=== PATIENT | female | born 1965 | race Caucasian/White ===

== ENCOUNTER 2024-08-21 10:25 | Outpatient (CLI) | payer OTHER, SELFPAY ==
--- NOTE | 2024-08-22 17:49 | WPDNEUROLOGY ---
Neurology EEG Report General Information Date of Study: 08/21/24 TEST electroencephalogram DIAGNOSIS seizure disorder CONDITION OF RECORDING neurodiagnostic lab EEG NUMBER [id number] CLINICAL HISTORY History of seizures disorder EEG DESCRIPTION During wakefulness the background activity consists of posterior dominant alpha rhythm at 8 hertz with an amplitude of 20-40 microvolts which appears poorly formed. Anteriorly low amplitude mixed frequency activity was seen. There is a good anteroposterior gradient. Hyperventilation and photic stimulation were performed during which no significant abnormal background changes were seen. No episode of driving response was noted. Patient did not progress to stage 2 sleep. IMPRESSION This is a normal EEG obtained during awake state.
== END 2024-08-21 10:26 | disposition home or self-care (01) ==
LOC: ANHNEURO 10:27
PROVIDERS: PCP Internal Medicine; Visit Provider Internal Medicine
DX: G40.909 Epilepsy, unspecified, not intractable, without status epilepticus (principal)
CPT/HCPCS: 95816

== ENCOUNTER 2025-11-18 08:51 | Emergency (ER) | payer OTHER, SELFPAY ==
--- NOTE | ~2025-11-18 | CT_ITS ---
EXAMINATION: 1. CT facial & cervical spine wo DATE: 11/18/2025 09:33 INDICATION: Unwitnessed fall TECHNIQUE: 1. Computed tomography (CT) of the maxillofacial region and of the cervical spine were performed without intravenous contrast. Sagittal and coronal reconstructions of both regions were obtained. Automated exposure control and iterative reconstruction technique were employed. The dose-length product was 454.52 mGy-cm. COMPARISON: None. FINDINGS: Maxillofacial CT: Blowout fracture at the posterior wall of the left orbit with large fragment comprising majority of the area of the inferior wall. The fragment is angulated from its minimally displaced medial margin with up to 1.1 cm caudal displacement of the lateral margin of the fracture. There is herniation of the intraorbital fat and portion of the inferior rectus muscle tear defect into the maxillary sinus. There is also a small amount of dependently layering blood in the right maxillary sinus. Left globe appears intact. Right orbit is normal. There is an additional mildly comminuted and displaced intra-articular fracture of the right femoral condyle. A small portion of the condylar articular surface remains nondisplaced relative to the remainder of the mandible. The larger portion of the mandibular condyle is displaced medially relative to the remainder the mandible and is anterior and medially dislocated from the temporomandibular fossa. No other maxillofacial fractures identified. Nasal septum is midline. Normal alignment with mild osteoarthritis at the left temporomandibular joint. 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 Alignment is normal. No fracture. Vertebral body heights are normal. Moderate disc height loss with associated severe bilateral uncovertebral osteoarthritis and prominent nearly bridging anterior osteophytes at C4-C5 and C5-C6. Posterior disc and osteophyte complexes contribute to mild central canal stenosis at both levels. Remaining disc heights are normal. Disc bulge at C6-C7 also contributes to mild central canal stenosis. There is multilevel mild to moderate cervical and moderate to severe upper thoracic spondylosis. Facet and uncovertebral osteoarthritis contributes to moderate bilateral neural from stenosis at C4-C5 and C5-C6. There is mild neural from stenosis at several additional cervical and upper thoracic neural foramina. Visualized upper lungs are clear. Cervical soft tissues are unremarkable. IMPRESSION: 1. Displaced fracture of the anterior wall of the left orbit with caudal herniation of some of the intraconal fat and a portion of the inferior rectus muscle. 2. Mildly comminuted and displaced intra-articular fracture dislocation of the right mandible condyle. 3. Moderate cervical spondylosis with no acute osseous abnormality. Reviewed, dictated and finalized at location A. IC INFORMATION COORDINATOR IMPRESSION: 1. Displaced fracture of the anterior wall of the left orbit with caudal hernia tion of some of the intraconal fat and a portion of the inferior rectus muscle. 2. Mildly comminuted and displaced intra-articular fracture dislocation of the right mandible condyle. 3. Moderate cervical spondylosis with no acute osseous abnormality.
--- NOTE | ~2025-11-18 | XR_ITS ---
EXAMINATION: XR knee LT 3V, 11/18/2025 13:30 RUG DYER HISTORY: fall with bruising COMPARISON: No comparisons available. Findings: No acute fracture or malalignment. Moderate tricompartmental degenerative changes, small effusion Soft tissues unremarkable. Impression: No acute fracture or malalignment. Reviewed, dictated and finalized at location P. DYER Impression: No acute fracture or malalignment.
--- NOTE | ~2025-11-18 | CT_ITS ---
EXAMINATION: CT brain wo con, 11/18/2025 9:20 OPERATIONAL METEOROLOGIST HISTORY: unwitnessed fall COMPARISON: No comparisons available. Technique: Axial images obtained of the brain without contrast. One or more of the following dose reduction techniques were used: automated exposure control, adjustment of the mA and/or kV according to patient size, use of iterative reconstruction technique. Findings: No acute infarct or parenchymal hemorrhage. No abnormal mass or mass effect. No midline shift. No extra-axial fluid collections. No hydrocephalus. Mastoid air cells unremarkable. Sinuses and orbits unremarkable. No acute fracture. No significant facial or scalp soft tissue swelling evident. No radiopaque foreign body is seen. Impression: 1.No acute intracranial abnormality. Reviewed, dictated and finalized at location P. ATIONAL METEOROLOGIST Impression: 1.No acute intracranial abnormality.
--- NOTE | ~2025-11-18 | XR_ITS ---
EXAMINATION: XR pelvis 1-2V, 11/18/2025 13:30 HEEL NAILING MACHINE OPERATOR HISTORY: fall COMPARISON: No comparisons available. Findings: No acute fracture or malalignment. No significant degenerative changes. Soft tissues unremarkable. Impression: No acute fracture or malalignment. Reviewed, dictated and finalized at location P. NAILING MACHINE OPERATOR Impression: No acute fracture or malalignment.
--- NOTE | ~2025-11-18 | XR_ITS ---
EXAMINATION: XR knee RT 3V DATE: 11/18/2025 14:45 INDICATION: Injury TECHNIQUE: Right knee x-rays were obtained. COMPARISON: None. FINDINGS: No fracture lucency seen. Possible small suprapatellar effusion. Moderately severe tricompartmental osteoarthritic degenerative changes most advanced in the medial compartment and patellofemoral joint. IMPRESSION: 1. No displaced fracture lucency. Possible small suprapatellar joint effusion. Reviewed, dictated and finalized at location A. Y CHILDHOOD ASSOCIATE TEACHER
--- NOTE | ~2025-11-18 | XR_ITS ---
EXAMINATION: XR chest 1V, 11/18/2025 14:30 GEOSPATIAL SPECIALIST HISTORY: fall COMPARISON: No comparisons available. Technique: Single view. Findings: The lungs are clear, no effusion. No pneumothorax. Heart is normal size. Mediastinal and hilar contours are within normal limits. Bony thorax no acute abnormality. Impression: No acute cardiopulmonary abnormality. Reviewed, dictated and finalized at location P. PATIAL SPECIALIST Impression: No acute cardiopulmonary abnormality.
--- NOTE | 2025-11-18 08:59 | ECG_ITS ---
Test Date: 2025-11-18 09:05:30 Measurements Intervals [place] Rate: 108 P: 28 UT: 164 QRS: -35 QRSD: 78 T: 56 QT: 339 QTc: 456 Interpretive Statements SINUS TACHYCARDIA LEFT AXIS DEVIATION VOLTAGE CRITERIA FOR LVH POSSIBLE ANTERIOR MYOCARDIAL INFARCTION , PROBABLY OLD ABNORMAL ECG No previous ECG available for comparison Electronically Signed On 11-18-2025 11:28:39 BATTERY [employer]GER CON[employer]OR LINE by Jean-Pierre Aparicio D.O.
[2025-11-18 09:00] VITALS: BP 94/53; PULSE 111; RESP 18; TEMP 36.6; O2SAT 95
[2025-11-18 09:20] LABS: Hematocrit 33.7 % (37.0-47.0); Hemoglobin 10.6 g/dL (12.0-15.0); Immature Granulocyte Percent A 0.6 % (0-0.5); Lymphocytes Absolute Auto 0.87 K/mm3 (0.9-3.2); Mean Corpuscular HGB Conc 31.5 g/dl (32-36); Mean Corpuscular Hemoglobin 24.1 pg (26-34); Mean Corpuscular Volume 76.8 fl (80-100); Nucleated Red Blood Cells Absolute Auto 0.000 K/mm3 (0.0-0.012); Nucleated Red Blood Cells Perc 0.0 % (0.0-0.2); Platelet Count Result 276 k/mm3 (150-375); Red Blood Count 4.39 M/mm3 (4.2-5.4); White Blood Count 12.8 K/mm3 (4.5-10.0)
[2025-11-18 09:30] VITALS: PULSE 110
[2025-11-18 10:09] VITALS: BP 100/56; PULSE 113; RESP 20; O2SAT 97
--- OUTSIDE RECORDS SUMMARY | 2025-11-18 10:09 | XMS_ITS | Clinical Summary ---
Author Organization [facility] Facility Address [address] [place] [address] Care Team Providers Care Watch Supervisor Name Role Phone Unavailable Primary Care Provider Unavailabl e Allergies Active Allergy Reactions Criticality Noted Date Comments Divalproex Sodium Other (see comments) 06/19/20 21 Lamotrigine Rash,Other (see comments) Low 8 Penicillins Other (see comments) 06/19/2021 Red Dye #40 (Allura Red) Other (see comments) 0 05/06/2018 Medications * This document contains information received from the source organization and may not represent a complete record from that organization. albuterol HFA (PROVENTIL HFA;VENTOLIN HFA) 108 (90 Base) MCG/ACT inhaler 1 puff by Other route every 4 (four) hours Active Aspirin Low Dose 81 MG EC tablet Take 81 mg by mouth 1 (one) time each day 1 Active Cholecalcifero l 50 MCG (2000 UT) capsule Take 1 capsule by mouth 1 (one) time each day Active famotidine (PEPCID) 20 MG tablet Take 20 mg by mouth at night if needed 1 Active gabapentin (NEURONTIN) 800 MG tablet Take 800 mg by mouth 1 (one) time each day 1 Active levETIRAcetam (KEPPRA) 1000 MG tablet Take 1,000 mg by mouth in the morning and 1,000 mg in the evening. 1 Active Melatonin 5 MG capsule Take 1 capsule by mouth 1 (one) time each day Active metFORMIN (GLUCOPHAGE) 500 MG tablet Take 500 mg by mouth 2 (two) times a day with meals 1 Active montelukast (SINGULAIR) 10 MG tablet Take 10 mg by mouth every night 1 Active Multiple Vitamin (Daily-Claudia) tablet Take 1 tablet by mouth daily 1 Active Invega Sustenna 234 MG/1.5ML suspension prefilled syringe every 30 (thirty) days 1 Active simvastatin (ZOCOR) 40 MG tablet Take 40 mg by mouth every night 1 Active traZODone (DESYREL) 150 MG tablet Take 3 tablets by mouth every night Active hydroCHLOROthi azide 25 MG tablet TAKE 1 TABLET BY MOUTH DAILY 90 tablet 1 11/20/20 29 Active sertraline (ZOLOFT) 25 MG tablet Take 25 mg by mouth 1 (one) time each day Active spironolactone (ALDACTONE) 25 MG tablet Take 1 tablet (25 mg total) by mouth 1 (one) time each day 90 tablet 4 Active Empagliflozin 10 MG tablet Take 10 mg by mouth 1 (one) time each day in the morning Active metoprolol succinate XL (TOPROL XL) 25 MG 24 hr tablet Take 25 mg by mouth 1 (one) time each day Do not crush or chew. Active acetaminophen (TYLENOL) 500 MG tablet Take 500 mg by mouth every 6 (six) hours if needed for mild pain Active furosemide (LASIX) 20 MG tablet Take 1 tablet (20 mg total) by mouth in the morning and 1 tablet (20 mg total) in the evening. 180 tablet 5 10/21/20 26 Active furosemide (LASIX) 20 MG tablet TAKE 1 TABLET BY MOUTH EVERY MORNING AND TAKE 1 TABLET BY MOUTH EVERY EVENING 56 tablet 3 5 10/21/20 25 Discontinued Active Problems Problem Noted Date Diagnosed Date Chronic diastolic congestive heart failure 01/22 Stasis dermatitis of lower l imb due to chronic peripheral venous hypertension 06/20/2021 Chronic hyponatremia 06/19/2021 Chronic obstructive pulmonary disease 06/19/2021 Hyperlipidemia 06/19/2021 Morbid obesity 06/19/2021 Schizophrenia 06/19/2021 Seizure disorder 06/19/2021 Urinary incontinence 06/19/2021 Vitamin D deficiency 06/19/2021 Type 2 diabetes mellitus without complication Hyposmolality and/or hyponatremia 06/15/2021 Essential hypertension 06/15/2021 Resolved Problems Problem Noted Date Diagnosed Date Resolved Date Essential hypertension 06/19/202106/20 Diabetes mellitus without me ntion of complication, type II or unspecified type, not stated as uncontrolled 06/15/2021 06/20/2021 Encounters Date Type Department Care Team Description 10/21/2025 Refill [place] [employer] [facility] [place], [facility] [address] [facility] [address] [place] [phone] Blake Fraire MD 09/13/2025 Documentation Only [facility] [employer] [facility] [place], [facility] [address] [facility] [address] [place] [phone] Blake Fraire MD from Last 3 Months Immunizations Immunization Administration Dates Next Due Influenza TIV (IM) 09/01/2017 Pneumococcal Polysaccharide 09/01/2017 Family History Medical History Relation Comments Diabetes Father Heart disease Father Hypertension Father Cancer Mother Heart disease Mother Relation Status Comments Father Alive Mother Social History Tobacco Use Types Packs/Day Years Used Date Smoking Tobacco: Former Smokeless Tobacco: Current Chew Alcohol Use Standard Drinks/Week Comments Never 0 (1 standard drink = 0.6 oz pur e alcohol) Comments Unknown Sex and Gender Information Value Date Recorded Sex Assigned at Not on file Legal Sex Female 2:49 PM EDT Gender Identity Not on file Sexual Orientation Not on file Last Filed Vital Signs Vital Sign Reading Time Taken Comments Blood Pressure 122/70 04/06/2025 10:22 AM CDT Pulse 68 04/06/2025 10:22 AM CDT Temperature 36.1 C (97 F) 04/06/2025 10:22 AM CDT Respiratory Rate 18 04/06/2025 10:22 AM CDT Oxygen Saturation 97% 04/06/2025 10:22 AM CDT Inhaled Oxygen Concentration - - Weight 93.9 kg (207 lb) 04/06/2025 10:22 AM CDT Height 162.6 cm (5' 4) 09/22/2024 12:27 PM CDT Body Mass Index 35.53 09/22/2024 12:27 PM CDT Plan of Treatment Upcoming Encounters Date Type Department Care Team (Late st Contact Info) Description 12/07/2025 10:00 AM HAM TRIMMER Office Visit [facility], [facility] [address] [facility] [address] [place] [phone] Blake Fraire MD [address] [facility] 1 [place] [address] Health Maintenance Due Date Last Done Comments Breast Cancer Screening 1967 Hepatitis B Vaccine (1 of 3 - 19+ 3-dose series) 1986 Colorectal Cancer Screening: Annual FOBT 2016 Colorectal Cancer Screening: Colonoscopy 2016 Colorectal Cancer Screening: Sigmoidoscopy 2016 Pneumococcal Vaccine: 50+ Ye ars (2 of 2 - PCV) 09/01/2018 09/01/2017 Diabetes: Ophthalmology Exam 04/28/2021 Diabetes: Pedal Pulse Checked 04/28/2021 Diabetes: Sensory Foot Exam 04/28/2021 Diabetes: Visual Foot Exam 04/28/2021 Diabetes: Hemoglobin A1C 07/06/2025 025, 08/04/2024, 01/28/2024, Additional history exists Influenza Vaccine (#1) 2025 09/01/2017 Pneumococcal Vaccine: Peds ( 0 to 5 Years) and At-Risk Patients (6 to 49 Years) Discontinued 09/01/2017 Procedures Procedure Name Priority Date/Time Associated Diagnosis Comments EXT RESULT ENTRY Routine 04/05/2025 from Last 3 Months or Most Recently Relevant to Health Maintenance Results * (ABNORMAL) EXT RESULT ENTRY (04/05/2025) WBC 11.0(A) 3.3 - 10.0 10*3/ML Red Blood Cell Count 5.63 Hemoglobin 12.6 12.0 - 16.0 Hematocrit 42.2 36.0 - 46.0 Platelets 376 150 - 399 10*3/UL MCV 75.0(A) 82.0 - 108.0 Sodium 132(A) 137 - 147 Potassium 3.7 3.4 - 5.5 Chloride 94.0(A) 99.0 - 108.0 Carbon Dioxide 31 mmol/L Anion Gap 10.7 <=30 MMOL/L Glucose 192 60 - 200 BUN 15 4 - 21 mg/dL Creatinine 0.79 0.50 - 1.10 mg/dL Total Protein 6.8 6.4 - 8.2 G/DL Albumin 4.1 3.5 - 5.0 g/dL Calcium 10.0 8.7 - 10.7 mg/dL Phosphorus, Serum 4.6(H) eGFR Non-Afr Yemeni >60 PTH 32.4 PG/ML Vitamin D, 25-OH, Total 32.9 ng/mL Hemoglobin A1C 7.4(A) 4.0 - 6.0 Protein Urine Random 19(H) Creatinine, Urine Random 30.60 mg/dL Urine Protein/Creatini ne Ratio 0.6(H) mg/g creat Glucose, UA 1000 mg/dL Bilirubin, UA Negative Ketones, UA Negative Urine Specific [place] 1.006 Blood, UA Negative Alberto/ul pH, UA 7.0 Protein, UA Negative mg/dL Urobilinogen, UA Normal Nitrite, UA Negative Leukocytes, UA 25 WBC, Urine None Seen None Seen, Occasional, 0-2 /HPF RBC, Urine None Seen None Seen, Occasional, 1-5 /HPF Epithelial Cells in Urine Packed Field /HPF Bacteria, Urine None Seen None Seen, Occasional /HPF Triglycerides 214(H) Cholesterol, Total 175 HDL 66 mg/dL LDL-Calculated 66 04/05/2025 [facility] Provider LAB BLOOD ORDERABLES Letty l Result from Last 3 Months or Most Recently Relevant to Health Maintenance Insurance [facility]
--- OUTSIDE RECORDS SUMMARY | 2025-11-18 10:09 | XMS_ITS | Encounter Summary ---
Author Organization [facility] [employer] [facility] [employer] [facility] Address [address] [address] Phone Care Team Providers Care Type Bar And Segment Assembler Name Role Phone Unavailable Primary Care Provider Unavailabl e Reason for Visit * Reason Comments Med Refill Encounter Details Date Type Department Care Team (Late Contact Info) Description 08/01/2023 [facility] [address] [facility] [address] [place] [address] Blake Fraire MD [address] [address] Social History Tobacco Use Types Packs/Day Years Used Date Smoking Tobacco: Former Smokeless Tobacco: Current Chew Alcohol Use Standard Drinks/Week Comments Never 0 (1 standard drink = 0.6 oz pur e alcohol) Comments Unknown Sex and Gender Information Value Date Recorded Sex Assigned at Not on file Legal Sex Female 2:49 PM EDT Gender Identity Not on file Sexual Orientation Not on file documented as of this encounter Plan of Treatment Upcoming Encounters Date Type Department Care Team (Late Contact Info) Description 12/07/2025 10:00 AM COLD ROLLING COORDINATOR [facility] [address] [facility] [address] [place] [address] Blake Fraire MD [address] [facility] 1 [place] [address] documented as of this encounter Visit Diagnoses Not on filedocumented in this encounter
--- OUTSIDE RECORDS SUMMARY | 2025-11-18 10:09 | XMS_ITS | Clinical Summary ---
Author Organization [facility] Address [address] [facility] [place] [address] Care Team Providers Care Piano Sounding Board Matcher Name Role Phone Unavailable Primary Care Provider Unavailabl e Source Comments [facility],non-owned Affiliates and Associated Physician Practices is amultiple site organization consisting of ambulatory clinics and hospital sitesin [place], [place], [place] and [place]. This disclosure is being madepursuant to the Care Everywhere program and may not contain all information available regarding this patient. Last updated 18.[facility] Allergies Active Allergy Reactions Criticality Noted Date Comments Lamotrigine Dizziness,Rash Medium 04/24/2018 Penicillins Dizziness,Rash Medium 04/24/2018 Red Dye Dizziness,Unknown 05/06/2018 Valproic Acid Dizziness,Rash Medium 04/24/2018 Medications * Be aware that medications may not be up to date on this document. Alwaysverify current medications with the patient. aspirin EC (ECOTRIN) 81 MG tablet Take 81 mg by mouth 1 Active glimepiride (AMARYL) 1 MG tablet Take 1 mg by mouth daily before breakfast 1 Active vitamin D, ergocalciferol, (DRISDOL) 1.25 MG (02864 UT) capsule 1 Active Multiple Vitamin (DAILY-MAAME) TABS once daily 1 Active metFORMIN (GLUCOPHAGE) 500 MG tablet Take 500 mg by mouth 2 times daily 1 Active venlafaxine XR 24hr (EFFEXOR XR) 150 MG capsule Take 150 mg by mouth 2 times daily 1 Active gabapentin (NEURONTIN) 800 MG tablet Take 800 mg by mouth 3 times daily 1 Active montelukast (SINGULAIR) 10 MG tablet Take 10 mg by mouth every morning 1 Active melatonin 5 MG capsule Take 1 capsule by mouth at bedtime Active simvastatin (ZOCOR) 20 MG tablet Take 20 mg by mouth at bedtime 1 Active traZODone (DESYREL) 150 MG tablet Take 150 mg by mouth at bedtime 1 Active silver sulfADIAZINE (SILVADENE) 1 % cream APPLY AA BID 0 Active albuterol HFA (PROVENTIL;VENTOL IN;PROAIR) 108 (90 Base) MCG/ACT inhaler Use 2 puffs as instructed Active famotidine (PEPCID) 20 MG tablet Take 20 mg by mouth nightly as needed 1 Active ondansetron, disintegrating, (ZOFRAN ODT) 4 MG tablet Take 4 mg by mouth 3 times daily as needed 1 Active atenolol (Tenormin) 25 MG tablet Take 1 tablet by mouth once daily 1 Active levETIRAcetam (Keppra) 750 MG tablet Take 750 mg by mouth 2 times daily 1 Active sertraline (Zoloft) 25 MG tablet Take 25 mg by mouth once daily Active levETIRAcetam (Keppra) 750 MG tabletIndications :Seizures (HCC),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, not intractable, without status epilepticus (HCC) TAKE 1 TABLET BY MOUTH TWICE A DAY 60 tablet 1 3 Active Family History Relation Name Status Comments Father Alive Mother Social History Tobacco Use Types Packs/Day Years Used Date Smoking Tobacco: Never Smokeless Tobacco: Never Alcohol Use Standard Drinks/Week Comments Never 0 (1 standard drink = 0.6 oz pur e alcohol) Comments Unknown Sex and Gender Information Value Date Recorded Sex Assigned at Not on file Legal Sex Female 9:11 AM CDT Gender Identity Not on file Sexual Orientation Not on file Last Filed Vital Signs Vital Sign Reading Time Taken Comments Blood Pressure 114/64 08/31/2022 11:18 AM CDT Pulse 83 08/31/2022 11:18 AM CDT Temperature 36.4 C (97.5 F) 08/31/2022 11:18 AM CDT Respiratory Rate - - Oxygen Saturation 96% 08/31/2022 11: 18 AM CDT Inhaled Oxygen Concentration - - Weight 136.2 kg (300 lb 3.2 oz) 022 11:18 AM CDT Height 157.5 cm (5' 2) 08/31/2022 11:1 8 AM CDT Body Mass Index 54.91 08/31/2022 11:18 AM CDT Plan of Treatment Health Maintenance Due Date Last Done Comments COLOGUARD (AGES 45-75) - COL ON CA SCREENING 1967 COLON MONITORING 1967 COLONOSCOPY - COLON CA SCREENING 1967 CT COLONOGRAPHY - COLON CA SCREENING 1967 Colorectal Cancer Screening 1967 FIT - COLON CA SCREENING 1967 FLEX SIG - COLON CA SCREENING 1967 MAMMOGRAM 1967 HIV SCREENING 1982 HEPATITIS C SCREENING 11/26/1985 DTAP/TDAP/TD VACCINES (1 - Tdap) 1986 HEPATITIS B VACCINE (1 of 3 - 19+ 3-dose series) 1986 PAP SMEAR 1988 PNEUMOCOCCAL VACCINE 50+ (1 of 1 - PCV) 2017 ZOSTER VACCINE (1 of 2) 2017 SCREENING FOR DIABETES 08/31/2022 DEPRESSION SCREENING 12/02/2024 COVID-19 VACCINE (1 - 2024-2 6 season) 2025 INFLUENZA VACCINE (#1) 2025 09/01/2017 HIB VACCINE Aged Out No longer eligi ble based on patient's age to complete this topic HPV VACCINE Aged Out No longer eligi ble based on patient's age to complete this topic MENINGOCOCCAL (Group B) VACC INE SHARED DECISION-MAKING Aged Out No longer eligibl e based on patient's age to complete this topic MENINGOCOCCAL GROUPS A/C/Y/W VACCINE Aged Out No longer eligible b ased on patient's age to complete this topic Insurance [facility] * Guarantor: JACINTO RODRIGUEZ Account Type Relation to Patient Date of Phone Billing Address Personal/Family [address] [address] [facility]
--- OUTSIDE RECORDS SUMMARY | 2025-11-18 10:09 | XMS_ITS | Clinical Summary ---
Author Organization [facility] Address [address] [address] Phone Care Team Providers Care Senior Applications Developer Name Role Phone Royal Delcid MD Unavailable [phone] Sonny Castañeda MD Primary Care Provider [phone] Allergies Active Allergy Reactions Criticality Noted Date Comments Divalproex Sodium Er Rash 04/24/2018 Lamotrigine Rash 04/24/2018 Penicillins Rash 04/24/2018 Red Dye #40 (Allura Red) Unknown 05/06/2018 Medications Paliperidone (INVEGA) 6 MG TABLET SR 24 HR Take 6 mg by mouth daily. Active venlafaxine (EFFEXOR) 100 MG Tablet Take 150 mg by mouth 2 times daily. Active Melatonin-Pyri doxine (MELATIN PO) Take 5 mg by mouth nightly. Active simvastatin (ZOCOR) 20 MG Tablet Take 40 mg by mouth every evening. Active metFORMIN (GLUCOPHAGE) 500 MG Tablet Take 500 mg by mouth daily. Active lisinopril (PRINIVIL, ZESTRIL) 5 MG Tablet Take 5 mg by mouth daily. Active traZODone (DESYREL) 100 MG Tablet Take 100 mg by mouth nightly. Active oxybutynin (DITROPAN) 5 MG Tablet Take 5 mg by mouth 2 times daily. Active ERGOCALCIFEROL PO Take 1.25 mg by mouth daily. Active montelukast (SINGULAIR) 10 MG Tablet Take 10 mg by mouth every evening. Active Albuterol Sulfate (PROAIR HFA IN) take 2 Puffs by inhalation 6 times daily. Active sertraline (ZOLOFT) 50 MG Tablet Take 50 mg by mouth daily. Active Paliperidone Palmitate ER (Invega Sustenna) 234 MG/1.5ML Suspension Prefilled Syringe by Intramuscular route every 28 days. Active spironolactone (ALDACTONE) 25 MG Tablet Take 25 mg by mouth daily. Active famotidine (PEPCID) 20 MG Tablet Take 20 mg by mouth 2 times daily. Active hydroCHLOROthi azide 25 MG Tablet Take 25 mg by mouth daily. Active Empagliflozin (JARDIANCE) 10 MG Tablet Take 10 mg by mouth daily. Active metoprolol Succinate (TOPROL-XL) 25 MG TABLET SR 24 HR Take 25 mg by mouth daily. Active gabapentin (NEURONTIN) 800 MG Tablet Take 800 mg by mouth nightly. Active omeprazole (PriLOSEC) 40 MG CAPSULE DELAYED RELEASE Take 40 mg by mouth daily. Active aspirin EC 81 MG Tablet Delayed Response Take 81 mg by mouth daily. Active Multiple Vitamin (MULTIVITAMIN PO) Take by mouth. Activ e Midazolam (Nayzilam) 5 MG/0.1ML SolutionIndica tions:Seizures 0.1 mL by Nasal route as needed for Other (prolonged seizure or seizure cluster). 2 Each 5 04/15/20 25 Active atenolol (TENORMIN) 25 MG Tablet 11/27/20 21 Active levETIRAcetam (Keppra) 750 MG TabletIndicati ons:Seizure Take 2 Tablets by mouth 2 times daily. Indications: Seizure 120 Tablet 2 09/16/20 25 Active lacosamide (VIMPAT) 50 MG TabletIndicati ons:Seizures Take 1 Tablet by mouth 2 times daily. 60 Tablet 2 10/25/20 25 Active lacosamide (VIMPAT) 50 MG TabletIndicati ons:Seizures Take 1 Tablet by mouth 2 times daily. 60 Tablet 2 08/03/20 25 025 Discontin ued(Reord er) Active Problems No known active problems Encounters Date Type Department Care Team Description 10/22/2025 Refill [facility] [place] [address] Royal Delcid MD Medication Refill 09/16/2025 10:30 AM CDT Office Visit [facility] [address] [place] [address] Erica Andrade APRN, CHRISTINA Seizures (Primary Dx) Discharge Disposition: Discharged to home or Selfcare 09/16/2025 Travel from Last 3 Months Family History Medical History Relation Name Comments Diabetes Father Hypertension Father Cancer Mother lung Diabetes Mother Hypertension Mother Relation Name Status Comments Father Alive Mother Social History Tobacco Use Types Packs/Day Years Used Date Smoking Tobacco: Never Smokeless Tobacco: Current Chew Tobacco Cessation:Ready to Q uit: No; Counseling Given: Yes Alcohol Use Standard Drinks/Week Comments No 0 (1 standard drink = 0.6 oz pur e alcohol) Comments Unknown Sex and Gender Information Value Date Recorded Sex Assigned at Not on file Legal Sex Female 12:15 AM CDT Gender Identity Not on file Sexual Orientation Not on file Last Filed Vital Signs Vital Sign Reading Time Taken Comments Blood Pressure 124/84 09/16/2025 10:23 AM CDT Pulse 100 09/16/2025 10:23 AM CDT Temperature 36.4 C (97.5 F) 09/16/2025 10:23 AM CDT Respiratory Rate 16 09/16/2025 10:23 AM CDT Oxygen Saturation 93% 09/16/2025 10:23 AM CDT Inhaled Oxygen Concentration - - Weight 84.4 kg (186 lb 1.6 oz) 09/16/2025 10:23 AM CDT Height 157.5 cm (5' 2) 09/16/2025 10:23 AM CDT Body Mass Index 34.04 09/16/2025 10:23 AM CDT Plan of Treatment Upcoming Encounters Date Type Department Care Team (Late st Contact Info) Description 11/23/2025 11:30 AM RN INTERN Office Visit [facility] Neu[facility] [address] [place] [address] Erica Andrade APRN, [employer]HOU[employer] ASSOCIATE [address] [place] [address] Health Maintenance Due Date Last Done Comments Hepatitis C Virus (HCV) Screening 1967 Mammogram 1967 TdaP Immunization 1967 Hepatitis B Immunization (1 of 3 - 19+ 3-dose series) 1986 Pap Smear 1988 Cervical Cancer Screening (CCS) 1997 HPV/Cotest 1997 Cologuard 2012 Immunochemical Fecal Occult Blood 2012 Respiratory Syncytial Virus (RSV) Immunization (Adult) (1 - Risk 50-74 years 1-dose series) 2017 Zoster Immunization (1 of 2) 2017 Pneumococcal Immunization (50+ years) (2 of 2 - PCV) 09/01/2018 09/01/2017 Colonoscopy 06/17/2023 06/17/2018, 05/06/2018 Colorectal Cancer Screening 06/17/2023 Influenza Immunization (#1) 08/02/202508/02, 09/01/2017, 08/14/2017, Additional history exists SARS-COV-2 Immunization ( season) 2025 12/29/2020, 2020 Pneumococcal Immunization Combined Discontinued 09/01/2017 Human Papillomavirus (HPV) Immunization (No Doses Required) Completed Meningococcal Immunization (ACWY) Aged Out No longer eligible based on patient's age to complete this topic Rotavirus Immunization Aged Out No lo nger eligible based on patient's age to complete this topic Insurance MEDICAID [employer] Care Teams Senior Applications Developer Relationship Specialty Start Date End Date Sonny Castañeda MD [address] [place] [address] [place] [address] PCP - General Internal Medicine 04/16/25 Royal Delcid MD [address] [place] [address] Consulting Physician Neurology 04/14/25
--- OUTSIDE RECORDS SUMMARY | 2025-11-18 10:09 | XMS_ITS | Encounter Summary ---
Author Organization [facility] [email or web address] [facility] [employer] [facility] Address [address] [address] Phone Care Team Providers Care Padding Gluer Name Role Phone Unavailable Primary Care Provider Unavailabl e Reason for Visit * Reason Comments Med Refill Encounter Details Date Type Department Care Team (Late Contact Info) Description 10/30/2023 Refill [place] [email or web address] [facility], [facility] [address] [facility] [address] [place] [address] Blake Fraire MD [address] [address] Social History Tobacco Use Types [...] (Late Contact Info) Description 12/07/2025 10:00 AM SENIOR ACCOUNTANT ANALYST Office [facility] [place] [email or web address] [address] [facility] [address] [place] [address] Blake Fraire MD [address] [facility] 1 [place] [address] documented as of this encounter Visit Diagnoses Not on filedocumented in this encounter
--- OUTSIDE RECORDS SUMMARY | 2025-11-18 10:09 | XMS_ITS | Encounter Summary ---
Author Organization [facility] [employer] [facility] Address [address] [address] Phone Care Team Providers Care Airport Operations Duty Manager Name Role Phone Unavailable Primary Care Provider Unavailabl e Reason for Visit * Reason Comments Med Refill Encounter Details Date Type Department Care Team (Late Contact Info) Description 05/14/2023 Refill [place] [facility] [address] [facility] 15 [place] [address] Blake Fraire MD [address] [address] Social History Tobacco Use Types [...] (Late Contact Info) Description 12/07/2025 10:00 AM HOMICIDE SQUAD LIEUTENANT Office Visit [place] [facility] [address] [facility] [address] [place] [address] Blake Fraire MD [address] [facility] 1 [place] [address] documented as of this encounter Visit Diagnoses Not on filedocumented in this encounter
--- OUTSIDE RECORDS SUMMARY | 2025-11-18 10:09 | XMS_ITS | Encounter Summary ---
Author Organization [facility] Arzeda [facility] Address [address] [address] Phone Care Team Providers Care Office Machines Teacher Name Role Phone Unavailable Primary Care Provider Unavailabl e Reason for Visit * Reason Comments Med Refill Encounter Details Date Type Department Care Team (Late Contact Info) Description 04/12/2023 Refill [place] [facility] [address] [facility] 15 [place] [address] Blake Fraire MD [address] [address] Social History Tobacco Use Types [...] (Late Contact Info) Description 12/07/2025 10:00 AM BAR GAUGER AND LUBRICATOR TENDER Office Visit [place] [facility] [address] [facility] 15 [place] [address] Blake Fraire MD [address] [facility] 1 [place] [address] documented as of this encounter Visit Diagnoses Not on filedocumented in this encounter
--- OUTSIDE RECORDS SUMMARY | 2025-11-18 10:10 | XMS_ITS | Encounter Summary ---
Author Organization [facility] [employer] [facility] Address [address] [place] [phone] Phone Care Team Providers Care Electrification Adviser Name Role Phone Unavailable Primary Care Provider Unavailabl e Reason for Visit * Reason Comments Med Refill Encounter Details Date Type Department Care Team (Late st Contact Info) Description 06/12/2021 Refill [place] [facility], [facility] [address] [place] [address] 1 [place] [address] Blake Fraire MD 12[address] [facility] 1 [place] [address] Social History Tobacco Use Types Packs/Day Years Used Date Smoking Tobacco: Every Day Comments Unknown Sex and Gender Information Value Date Recorded Sex Assigned at Not on file Legal Sex Female 2:49 PM EDT Gender Identity Not on file Sexual Orientation Not on file documented as of this encounter Plan of Treatment Upcoming Encounters Date Type Department Care Team (Late Contact Info) Description 12/07/2025 10:00 AM SOCIAL WORK COORDINATOR Office Visit [place] [facility], [facility] [address] [place] [address] [address] [place] [phone] Blake Fraire MD 12[address] [facility] 1 [place] [address] documented as of this encounter Visit Diagnoses Not on filedocumented in this encounter
--- OUTSIDE RECORDS SUMMARY | 2025-11-18 10:10 | XMS_ITS | Encounter Summary ---
Author Organization [facility] [employer] [facility] Address [address] [place] [phone] Phone Care Team Providers Care Grief Counselor Name Role Phone Unavailable Primary Care Provider Unavailabl e Reason for Visit * Reason Comments Med Refill Encounter Details Date Type Department Care Team (Late st Contact Info) Description 05/19/2021 Refill [place] [employer] [facility], [facility] [address] [place] [address] 1 [place] [address] Blake Fraire MD [address] [facility] 1 [place] [address] Social History Tobacco Use Types [...] (Late Contact Info) Description 12/07/2025 10:00 AM AN/SSN 2 4 OPERATOR Office Visit [place] [employer] [facility], [facility] [address] [place] [address] [address] [place] [address] Blake Fraire MD [address] [facility] 1 [place] [address] documented as of this encounter Visit Diagnoses Not on filedocumented in this encounter
[2025-11-18] MEDS: LEVETIRACETAM IVPB (10:17)
[2025-11-18] MEDS: [UNRECOGNIZED DRUG - OTHER] IVPB (10:17)
[2025-11-18] MEDS: TETANUS,DIPHTHERIA,AC PERTUSSIS ADULT (0.5 ML) BOOSTRIX IM (10:19)
[2025-11-18 10:33] LABS: Alanine Aminotransferase 18 U/L (6-35); Albumin Level 3.6 g/dL (3.5-5.1); Alkaline Phosphatase 79 U/L (38-126); Anion Gap 10 mmol/L (4-12); Aspartate Amino Transferase 20 U/L (14-36); Bilirubin,Total 0.4 mg/dL (0.2-1.3); Blood Urea Nitrogen 8 mg/dL (7-17); Calcium 8.5 mg/dL (8.4-10.2); Carbon Dioxide 20 mmol/L (22-30); Chloride 99 mmol/L (98-107); Estimated CRCL calculation 73 ml/min; Estimated Glomerular Filt Rate > 60; Glucose 192 mg/dL (65-110); Potassium 3.6 mmol/L (3.4-5.0); Sodium 129 mmol/L (137-145); Total Protein 6.3 g/dL (6.3-8.2)
[2025-11-18] MEDS: LACTATED RINGERS 1,000 ML 999 ML IV CONT (11:03)
[2025-11-18 11:04] VITALS: BP 90/68; PULSE 115; RESP 19; O2SAT 97
[2025-11-18 12:54] VITALS: BP 105/69; PULSE 108; RESP 19; O2SAT 97
--- NOTE | 2025-11-18 13:52 | ED.EYEPROB ---
HPI - Eye Problem General Chief complaint: Seizure Stated complaint: Dizzy/seizure Time Seen by Provider: 11/18/25 08:57 History of Present Illness HPI Narrative: Patient presents here after having a fall; reportedly had a seizure last night but can't tell me why she fell this morning. Reporting some pain to her face. Related Data Home Medications ?Medication ?Instructions ?Recorded ?Confirmed ?Last Taken ?Type albuterol sulfate 90 mcg/actuation 1 inh inhalation Q4H 01/17/23 05/12/24 Unknown History aerosol inhaler (ProAir HFA) aspirin 81 mg tablet,delayed 81 mg PO DAILY 01/17/23 05/12/24 Unknown History release (Adult Low Dose Aspirin) cholecalciferol (vitamin D3) 50 50 mcg PO DAILY 01/17/23 05/12/24 Unknown History mcg (2,000 unit) capsule gabapentin 800 mg tablet 800 mg PO TID 01/17/23 05/12/24 Unknown History hydrochlorothiazide 25 mg tablet 25 mg PO DAILY 01/17/23 05/12/24 Unknown History levetiracetam 750 mg tablet 750 mg PO Q12H 01/17/23 05/12/24 Unknown History melatonin 5 mg capsule mg PO .HS 01/17/23 05/12/24 Unknown History metformin 500 mg tablet 500 mg PO BID 01/17/23 05/12/24 Unknown History montelukast 10 mg tablet 10 mg PO DAILY 01/17/23 05/12/24 Unknown History multivitamin 1 tablet PO DAILY 01/17/23 05/12/24 Unknown History paliperidone palmitate 234 mg/1.5 234 mg IM MONTHLY 01/17/23 05/12/24 Unknown History mL intramuscular syringe (Invega Sustenna) sertraline 25 mg tablet 25 mg PO DAILY 01/17/23 05/12/24 Unknown History trazodone 150 mg tablet 150 mg PO QHS PRN 01/17/23 05/12/24 Unknown History empagliflozin 10 mg tablet 10 mg PO DAILY 04/21/25 Unknown History (Jardiance) furosemide 20 mg tablet 20 mg PO BID 04/21/25 Unknown History metoprolol succinate 25 mg 12.5 mg PO DAILY 04/21/25 Unknown History tablet,extended release 24 hr midazolam 5 mg/spray (0.1 mL) 5 mg intranasal ONCE 04/21/25 Unknown History nasal spray (Nayzilam) omeprazole 40 mg capsule,delayed 40 mg PO DAILY 04/21/25 Unknown History release sertraline 50 mg tablet 50 mg PO DAILY 04/21/25 Unknown History simvastatin 20 mg tablet 40 mg PO DAILY 04/21/25 Unknown History spironolactone 25 mg tablet 25 mg PO DAILY 04/21/25 Unknown History Allergies Allergy/AdvReac Type Severity Reaction Status Date / Time divalproex sodium (From Allergy Mild Rash Verified 10/25/25 09:43 Depakote) lamotrigine (From Lamictal) Allergy Mild Rash Verified 10/25/25 09:43 Penicillins Allergy Mild Rash Verified 10/25/25 09:43 red dye Allergy Mild Rash Verified 10/25/25 09:43 Review of Systems Review of Systems: All systems reviewed & are unremarkable except as noted in HPI and below PMFSH Past Medical History Medical History Seizures H/O deep venous thrombosis Diabetes BMI greater than 40 Right knee DJD Left knee DJD Social History Social History Smoking status: Current every day smoker (chewing tobacco ) Smokeless tobacco user: chewing tobacco Exam Narrative: EXAMINATION OF ORGAN SYSTEMS/BODY AREAS: Constitutional: Vital signs per nursing GENERAL:No acute distress, non-toxic appearing. HEAD: Normal with no signs of head trauma. EYES: Bruising to left eye, possibly very minimally diminished ability to look up left eye compared to right ENT: Bruising and tenderness to face mostly on the left side, some to right jaw LUNGS: Nonlabored breathing. HEART: Regular rate and rhythm ABD: Soft, nontender to palpation EXT: Normal range of motion SKIN: Bruising to face with some very shallow lacerations; bruising bilateral knees NEURO: Alert. No gross focal sensory or strength deficits. PSYCH: Normal affect Course Vital Signs Vital signs: Vital Signs Temperature 97.8 F 11/18/25 09:00 Pulse Rate 111 H 11/18/25 09:00 Respiratory Rate 18 11/18/25 09:00 Blood Pressure 94/53 L 11/18/25 09:00 Pulse Oximetry 95 11/18/25 09:00 Oxygen Delivery Room Air 11/18/25 09:00 Temperature 97.8 F 11/18/25 09:00 Pulse Rate 108 H 11/18/25 12:54 Respiratory Rate 19 11/18/25 12:54 Blood Pressure 105/69 11/18/25 12:54 Pulse Oximetry 97 11/18/25 12:54 Oxygen Delivery Room Air 11/18/25 09:27 [facility] MDM Narrative Medical decision making narrative: Patient presenting here with fall, she cannot recall what happened, does tell me she thinks she had a seizure last night, she takes Keppra for this and has not missed any doses. She does have history of schizophrenia and lives at [facility] On exam she has multiple bruises everywhere, specially to her face, knees. I cannot see any obvious clinical entrapment on exam however this may be limited by patient effort, swelling. CT is showing mandible fracture/dislocation, orbit fracture with possible entrapment left eye Her tetanus is updated, cuts are cleaned. She got up to go to the bathroom and then suddenly collapsed again, thankfully did not hit her head and was caught by staff, requiring multiple people to pull her back into the bed. She cannot tell me what happened. She is now alert and answers questions appropriately. I have loaded her with Keppra and ordered fluids. She has no preference for facility. Discussed with [facility], spoke with Dr Calhoun on face, and Dr Bowen ku, recommendation for transfer ER to ER. Dr Forbes accepts. Differential Diagnosis Differential Diagnosis: fracture, intracranial hemorrhage, seizure, etc Lab Data 11/18/25 09:14 11/18/25 09:14 Labs: Lab Results 11/18/25 11/18/25 Range/Units 09:14 10:14 WBC 12.8 H (4.5-10.0) K/mm3 RBC 4.39 (4.2-5.4) M/mm3 Hgb 10.6 L (12.0-15.0) g/dL Hct 33.7 L (37.0-47.0) % MCV 76.8 L (80-100) fl MCH 24.1 L (26-34) pg MCHC 31.5 L (32-36) g/dl RDW 17.7 H (11.5-14.5) % Plt Count 276 (150-375) k/mm3 MPV 9.0 (7.4-10.4) fl Immature Gran % (Auto) 0.6 H (0-0.5) % Neut % (Auto) 86.8 H (45.5-73.1) % Lymph % (Auto) 6.8 L (18.3-44.2) % [place] % (Auto) 5.6 (2.6-8.5) % Eos % (Auto) 0.0 (0-4.4) % Baso % (Auto) 0.2 (0.2-1.2) % Lymph # (Auto) 0.87 L (0.9-3.2) K/mm3 [place] # (Auto) 0.7 H (0.1-0.6) K/mm3 Eos # (Auto) 0.0 (0-0.3) K/mm3 Baso # (Auto) 0.0 (0.0-0.1) K/mm3 Abs Immat Gran (auto) 0.08 H (0.00-0.031) K/mm3 Absolute Neuts (auto) 11.1 H (1.3-6.7) K/mm3 Absolute Nucleated RBC 0.000 (0.0-0.012) K/mm3 Nucleated RBC % 0.0 (0.0-0.2) % Sodium 129 L (137-145) mmol/L Potassium 3.6 (3.4-5.0) mmol/L Chloride 99 (98-107) mmol/L Carbon Dioxide 20 L (22-30) mmol/L Anion Gap 10 (4-12) mmol/L BUN 8 (7-17) mg/dL Creatinine 0.79 (0.7-1.0) mg/dL Estim Creat Clear Calc 73 ml/min Estimated GFR > 60 (59 - ) Glucose 192 H (65-110) mg/dL POC Capillary Glucose 198 H (65-105) mg/dl Calcium 8.5 (8.4-10.2) mg/dL Total Bilirubin 0.4 (0.2-1.3) mg/dL AST 20 (14-36) U/L ALT 18 (6-35) U/L Alkaline Phosphatase 79 (38-126) U/L Total Protein 6.3 (6.3-8.2) g/dL Albumin 3.6 (3.5-5.1) g/dL Imaging Data Radiologist's impression: ITS Impressions Head CT 11/18/25 09:34 Impression: 1.No acute intracranial abnormality. Head/Cervical Spine/Facial Bones CT 11/18/25 09:35 IMPRESSION: 1. Displaced fracture of the anterior wall of the left orbit with caudal herniation of some of the intraconal fat and a portion of the inferior rectus muscle. 2. Mildly comminuted and displaced intra-articular fracture dislocation of the right mandible condyle. 3. Moderate cervical spondylosis with no acute osseous abnormality. Critical Care Time Critical Care Time Critical Care Time: Yes Indication: multiple fractures, possible seizure Initial evaluation, discuss w/ involved parties, attempting to gather old records: 10 minutes Documenting medical record: 5 minutes Review of results (EKG's, labs, imaging): 5 minutes Serial repeat bedside evaluation: 15 minutes Discussing case with multiple memebers of the care team and consultants: 20 minutes Total Critical Care Time: 55 Discharge Plan Discharge Clinical Impression: Seizure, Facial fracture Patient Disposition: Acute Care Hospital Condition: Stable Patient Language: Bengali Prescriptions: No Action aspirin [Adult Low Dose Aspirin] 81 mg tablet,delayed release (DR/EC) 81 mg PO DAILY hydrochlorothiazide 25 mg tablet 25 mg PO DAILY cholecalciferol (vitamin D3) 50 mcg (2,000 unit) capsule 50 mcg PO DAILY multivitamin Tablet 1 tablet PO DAILY metformin 500 mg tablet 500 mg PO BID gabapentin 800 mg tablet 800 mg PO TID levetiracetam 750 mg tablet 750 mg PO Q12H montelukast 10 mg tablet 10 mg PO DAILY melatonin 5 mg capsule PO .HS trazodone 150 mg tablet 150 mg PO QHS PRN albuterol sulfate [ProAir HFA] 90 mcg/actuation HFA aerosol inhaler 1 inh inhalation Q4H Invega Sustenna 234 mg/1.5 mL syringe 234 mg IM MONTHLY sertraline 25 mg tablet 25 mg PO DAILY spironolactone 25 mg tablet 25 mg PO DAILY Jardiance 10 mg tablet 10 mg PO DAILY metoprolol succinate 25 mg tablet extended release 24 hr 12.5 mg PO DAILY simvastatin 20 mg tablet 40 mg PO DAILY furosemide 20 mg tablet 20 mg PO BID sertraline 50 mg tablet 50 mg PO DAILY Nayzilam 5 mg/spray (0.1 mL) spray,non-aerosol 5 mg intranasal ONCE Rx Instructions: as a single dose; may repeat dose in other nostril after 10 minutes if inadequate response omeprazole 40 mg capsule,delayed release(DR/EC) 40 mg PO DAILY Follow-up/Referrals: Sonny Castañeda MD [Primary Care Provider, Hospitalist]
[2025-11-18 15:04] VITALS: BP 96/58; PULSE 102; RESP 14; O2SAT 98
== END 2025-11-18 15:56 | disposition short-term general hospital (02) ==
PROVIDERS: Emergency Provider Emergency Medicine; PCP Internal Medicine
DX: S02.611A Fracture of condylar process of right mandible, initial encounter for closed fracture (principal); S02.85XA Fracture of orbit, unspecified, initial encounter for closed fracture; G40.909 Epilepsy, unspecified, not intractable, without status epilepticus; Z23 Encounter for immunization; E11.9 Type 2 diabetes mellitus without complications; M17.0 Bilateral primary osteoarthritis of knee; F20.9 Schizophrenia, unspecified; F17.220 Nicotine dependence, chewing tobacco, uncomplicated; Z86.718 Personal history of other venous thrombosis and embolism; Z79.82 Long term (current) use of aspirin; Z79.899 Other long term (current) drug therapy; Z79.84 Long term (current) use of oral hypoglycemic drugs; M47.812 Spondylosis without myelopathy or radiculopathy, cervical region; R94.31 Abnormal electrocardiogram [ECG] [EKG]; R00.0 Tachycardia, unspecified; W19.XXXA Unspecified fall, initial encounter
CPT/HCPCS: 36415; 70450; 70486; 71045; 72125; 72170; 73562; 80053; 82948; 85025; 90471; 90715; 93005; 96365; 99285; J1953; J7120